=== PATIENT | female | born 1950 | race Caucasian/White ===

== ENCOUNTER → 2022-05-30 | Outpatient (CLI) | payer MEDICARE, OTHER ==
[~2022-05-30] MED LIST: ALBU8.5H8 IH; ASPI-556 PO; AZAT50TA PO; AZIL1TAB3 PO; CALC-322 PO; LOVA20TA3 PO; MAGN400T7 PO; MONT-39 PO; MULT-1258 PO; PRED20TA3 PO; ROTI1PAT10 TD; SULF1TAB41 PO; SYMB8060 IH; VENL75CA97 PO
== END | disposition home or self-care (01) ==
LOC: RAH 11:25
PROVIDERS: ATTEND Internal Medicine
DX: J01.20 Acute ethmoidal sinusitis, unspecified (principal); J01.30 Acute sphenoidal sinusitis, unspecified; J01.10 Acute frontal sinusitis, unspecified; J01.00 Acute maxillary sinusitis, unspecified; J34.2 Deviated nasal septum
CPT/HCPCS: 70486